=== PATIENT | male | born 1945 | race Caucasian/White ===

== ENCOUNTER 2020-07-06 08:33 | Outpatient (REF) | payer MEDICARE, SELFPAY ==
[2020-07-06 12:14] LABS: Prostate Specific Antigen 6.89 ng/mL (<0.05-4.0)
== END 2020-07-06 08:34 | disposition home or self-care (01) ==
LOC: HO.LAB 08:33
PROVIDERS: PCP Internal Medicine; Visit Provider Urology
DX: Z12.5 Encounter for screening for malignant neoplasm of prostate (principal); R97.20 Elevated prostate specific antigen [PSA]
CPT/HCPCS: 36415; 84153